=== PATIENT | male | born 1945 | race Caucasian/White ===

== ENCOUNTER → 2017-12-29 | Outpatient (CLI) | payer MEDICARE, BC ==
[~2017-12-29] MED LIST: ASPI81EC PO; CAND32 PO; CHOL10002 PO; COLCHICINE0.6 MG PO; CYCL10 PO; Glucoten Caple1 EACH; HYDACE5325 PO; HYDCHL12.5 PO; LANS30EC PO; MELO7.5 PO; METO50ER PO; NEURONTIN PO; VERA180ER PO; VERA240ER PO
== END ==
LOC: LAB 16:51 → LAB SHORT 16:51
DX: D48.5 Neoplasm of uncertain behavior of skin (principal)
CPT/HCPCS: 88305

== ENCOUNTER → 2018-03-09 | Outpatient (CLI) | payer MEDICARE, BC | LOC: LAB SHORT 09:00 → LAB EV 09:00 | DX: E11.9 Type 2 diabetes mellitus without complications (principal) | CPT/HCPCS: 82043 ==

== ENCOUNTER 2018-12-18 13:43 | Day surgery (SDC) | payer MEDICARE, BC ==
[~2018-12-18] VITALS: Ht 175.3 cm; Wt 108.9 kg
[2018-12-18] MEDS ORDERED: OXYC1TAB11 (14:07)
--- NOTE | 2018-12-18 15:05 | NUR ---
12/18/18 Bobbi Danielson AFTER CONSULTATION WITH DR AMOS, IT WAS AGRRED BETWEEN PT AND DR AMOS TO NOT CONTINUE WITH EPIDURAL INJECTION TODAY.
== END 2018-12-18 14:52 | disposition home or self-care (01) ==
LOC: ORSCSDS 13:43
DX: M54.16 Radiculopathy, lumbar region (principal); Z53.9 Procedure and treatment not carried out, unspecified reason
CPT/HCPCS: J1040

== ENCOUNTER → 2019-02-11 | Outpatient (CLI) | payer MEDICARE, BC ==
[~2019-02-11] MED LIST changes: +OXYC1TAB11
== END | disposition home or self-care (01) ==
LOC: PLD 10:02 → LAB SHORT 10:02
DX: D22.5 Melanocytic nevi of trunk (principal)
CPT/HCPCS: 88305

== ENCOUNTER 2019-02-24 09:37 | Inpatient (IN) | payer MEDICARE, BC ==
[~2019-02-24] VITALS: Ht 175.3 cm; Wt 103.5 kg
[2019-02-24] MEDS ORDERED: CYCL10 PO (10:07)
[2019-02-24] MEDS ORDERED: GAVILAX17 GM PO (10:08)
[2019-02-24] MEDS ORDERED: GABA600 PO (10:08)
[2019-02-24] MEDS ORDERED: OXYC5 PO (10:09)
[2019-02-24] MEDS ORDERED: THERA1 EACH PO (10:09)
[2019-02-24 11:08] LABS: BASOPHILS ABSOLUTE AUTO 0.03 K/mm3 (0.00-0.23); BASOPHILS PERCENT AUTO 0 % (0-2); EOSINOPHILS ABSOLUTE AUTO 0.15 K/mm3 (0.00-0.68); EOSINOPHILS PERCENT AUTO 2 % (0-6); Hematocrit 41.5 % (37.0-53.0); Hemoglobin 13.8 g/dL (13.5-17.5); IMMATURE GRAN ABSOLUTE AUTO 0.03 K/mm3 (0.00-0.10); IMMATURE GRAN PERCENT AUTO 0 % (0-1); LYMPHOCYTES ABSOLUTE AUTO 0.92 K/mm3 (0.84-5.20); LYMPHOCYTES PERCENT AUTO 12 % (21-46); MONOCYTES ABSOLUTE AUTO 0.58 K/mm3 (0.16-1.47); MONOCYTES PERCENT AUTO 8 % (4-13); Mean Corpuscular HGB Conc 33.3 g/dL (31.5-36.5); Mean Corpuscular Volume 93 fL (80-100); Mean Platelet Volume 11.4 fL (9.1-12.4); NEUTROPHILS ABSOLUTE AUTO 5.92 K/mm3 (1.96-9.15); NEUTROPHILS PERCENT AUTO 78 % (41-73); Platelet Count 125 K/mm3 (150-400); RDW Coefficient Variation 12.1 % (11.7-14.2); RDW Standard Deviation 41.2 fL (35.1-46.3); Red Blood Cell Count 4.45 M/mm3 (4.30-5.90); White Blood Cell Count 7.63 K/mm3 (4.00-11.30)
[2019-02-24 11:55] LABS: Alanine Aminotransfer (ALT/SGP 68 U/L (12-78); Albumin, Blood 3.3 g/dL (3.4-5.0); Alk Phos 66 U/L (50-136); Anion Gap 6 mmol/L (6-16); Aspartate Aminotrans (AST/SGOT 41 U/L (12-37); Bilirubin, Total 0.5 mg/dL (0.1-1.0); Blood Urea Nitrogen 20 mg/dL (8-24); Bun/Creatinine Ratio 20.4 (12.0-20.0); CO2, Blood 25 mmol/L (21-32); Calcium, Blood 8.4 mg/dL (8.5-10.1); Chloride, Blood 109 mmol/L (98-108); Creatinine, Blood 0.98 mg/dL (0.60-1.20); Globulin, Blood 3.2 g/dL (2.2-4.0); Glomerular Filtration Rate >60 (60-); Glucose, Blood 150 mg/dL (70-99); Potassium, Blood 3.9 mmol/L (3.5-5.5); Sodium, Blood 140 mmol/L (136-145); Total Protein, Blood 6.5 g/dL (6.4-8.2); Troponin I 0.084 ng/mL (0.000-0.040)
[2019-02-24] MEDS ORDERED: CANDESARTAN-HC1 EAC1 PO (12:37)
--- NOTE | 2019-02-24 16:15 | NUR ---
PT RECENTLY TO IMAGING.
--- NOTE | 2019-02-24 16:38 | NUR ---
ELEVATED TROPONIN RECENTLY RECIEVED, DR FRITZ NOTIFIED OF LABS AND THAT PT IS IN IMAGING FOR STUDY. REPORTS TO CONSULT CARDIOLOGY. DR MACKEY NOTIFED OF CARDIOLOGY CONSULT. DISCUSSED LABS AND THAT PT IS OUT OF ROOM FOR IMAGING STUDY.
--- NOTE | 2019-02-24 18:34 | NUR ---
SEMICONDUCTOR WAFER INSPECTOR REPORTS CLARIFYING WITH HOSPITALIST COVERING FOR DR FRITZ TO GIVE IVF ORDERED.
--- NOTE | 2019-02-24 18:41 | NUR ---
DR MACKEY HERE TO SEE PT.
--- NOTE | 2019-02-25 05:57 | NUR ---
SHIFT SUMMARY PT RESTED INFREQUENTLY T/O NIGHT. AAOX4. PT DENIES CHEST DISCOMFORT/DYSPNEA T/O NIGHT. TELEMETRY REPORTING WONDERING ATRIAL PACEMAKER IN 60s TO 80s T/O NIGHT. PT SBA UP TO RESTROOM, BACK TO BED. ELEVATED BLOOD PRESSURE NOTED THIS SHIFT, CALL TO HOSPITALIST AND ADMINISTERED HYDRALAZINE 10MG IV X1 THIS AM, CONTINUE TO MONITOR. PT SITTING UP IN BED THIS AM, CALL LIGHT IN REACH, DENIES FURTHER NEEDS.
[2019-02-25 06:11] LABS: BASOPHILS ABSOLUTE AUTO 0.04 K/mm3 (0.00-0.23); BASOPHILS PERCENT AUTO 1 % (0-2); EOSINOPHILS ABSOLUTE AUTO 0.29 K/mm3 (0.00-0.68); EOSINOPHILS PERCENT AUTO 3 % (0-6); Hematocrit 42.5 % (37.0-53.0); Hemoglobin 14.3 g/dL (13.5-17.5); IMMATURE GRAN ABSOLUTE AUTO 0.03 K/mm3 (0.00-0.10); IMMATURE GRAN PERCENT AUTO 0 % (0-1); LYMPHOCYTES ABSOLUTE AUTO 1.46 K/mm3 (0.84-5.20); LYMPHOCYTES PERCENT AUTO 17 % (21-46); MONOCYTES ABSOLUTE AUTO 0.82 K/mm3 (0.16-1.47); MONOCYTES PERCENT AUTO 9 % (4-13); Mean Corpuscular HGB 31.6 pg (26.0-34.0); Mean Corpuscular HGB Conc 33.6 g/dL (31.5-36.5); Mean Corpuscular Volume 94 fL (80-100); Mean Platelet Volume 10.8 fL (9.1-12.4); NEUTROPHILS PERCENT AUTO 70 % (41-73); Platelet Count 132 K/mm3 (150-400); RDW Coefficient Variation 12.2 % (11.7-14.2); RDW Standard Deviation 42.7 fL (35.1-46.3); Red Blood Cell Count 4.52 M/mm3 (4.30-5.90); White Blood Cell Count 8.74 K/mm3 (4.00-11.30)
[2019-02-25 06:45] LABS: Alanine Aminotransfer (ALT/SGP 60 U/L (12-78); Albumin, Blood 3.2 g/dL (3.4-5.0); Alk Phos 64 U/L (50-136); Anion Gap 7 mmol/L (6-16); Aspartate Aminotrans (AST/SGOT 37 U/L (12-37); Bilirubin, Total 0.4 mg/dL (0.1-1.0); Blood Urea Nitrogen 17 mg/dL (8-24); Bun/Creatinine Ratio 18.8 (12.0-20.0); CHOL/HDL RATIO 3.8; CO2, Blood 24 mmol/L (21-32); Calcium, Blood 8.6 mg/dL (8.5-10.1); Chloride, Blood 112 mmol/L (98-108); Cholesterol 169 mg/dL (50-200); Globulin, Blood 3.3 g/dL (2.2-4.0); Glomerular Filtration Rate >60 (60-); Glucose, Blood 108 mg/dL (70-99); HDL Cholesterol 45 mg/dL (>39); LDL/HDL RATIO 2.1; Low Density Lipoprotein Chol 96 mg/dL (0-110); Potassium, Blood 3.8 mmol/L (3.5-5.5); Sodium, Blood 143 mmol/L (136-145); Total Protein, Blood 6.5 g/dL (6.4-8.2); Triglycerides 139 mg/dL (30-160); Very Low Density Lipoprot Chol 27 mg/dL (6-32)
--- NOTE | 2019-02-25 07:57 | NUR ---
DR MAKCEY HERE RECENTLY, SHE REPORTS PT WANTING SECOND OPINION AND THAT PT WISHES TO SPEAK TO REGULAR DOCTOR. DR MACKEY REPORTS WILL CALL AND TALK WITH DR FRITZ. REPORTS TO GIVE LOSARTAAN AND IV HYDRALAZINE AT THIS TIME.
--- NOTE | 2019-02-25 08:23 | NUR ---
PT MED ORDERED. REMINDED OF NPO IN 08:30 PER IMAGING YESTERDAY EVENING.
--- NOTE | 2019-02-25 09:44 | NUR ---
DR FRITZ HERE TO SEE PT, FAMILY PRESENT. REPORTS TALKING TO OTHER OFFICE MACHINES WIRER AND THAT THEY WILL COME SEE PT LATER TODAY.
--- NOTE | 2019-02-25 09:54 | NUR ---
DR FRITZ REPORTS WILL CANCEL STRESS TEST.
--- NOTE | 2019-02-25 10:28 | NUR ---
ECHO BEING COMPLETED.
--- NOTE | 2019-02-25 15:16 | NUR ---
Echocardiogram completed.
--- NOTE | 2019-02-25 16:42 | NUR ---
DR FRITZ CALLED PER HIS REQ. DISCUSSED STATUS INCLUDING VS. DISCUSSED PT REFUSING CBG'S, REPORTS MAY D/C. DISCUSSED CBG'S THAT HAVE BEEN DRAWN.
--- NOTE | 2019-02-25 18:38 | NUR ---
DR FRITZ INFORMED OF PT REPORTING NOT SEEING THE BRAKE LININGS COATER YET, REPORTS WILL CONTACT BRAKE LININGS COATER.
--- NOTE | 2019-02-25 19:18 | NUR ---
OPERATIONS SUPPORT MANAGER HERE TO SEE PT.
[2019-02-26 05:00] LABS: BASOPHILS ABSOLUTE AUTO 0.04 K/mm3 (0.00-0.23); BASOPHILS PERCENT AUTO 1 % (0-2); EOSINOPHILS ABSOLUTE AUTO 0.29 K/mm3 (0.00-0.68); EOSINOPHILS PERCENT AUTO 4 % (0-6); Hematocrit 42.7 % (37.0-53.0); Hemoglobin 14.3 g/dL (13.5-17.5); IMMATURE GRAN ABSOLUTE AUTO 0.03 K/mm3 (0.00-0.10); IMMATURE GRAN PERCENT AUTO 0 % (0-1); LYMPHOCYTES ABSOLUTE AUTO 1.62 K/mm3 (0.84-5.20); LYMPHOCYTES PERCENT AUTO 20 % (21-46); MONOCYTES ABSOLUTE AUTO 0.94 K/mm3 (0.16-1.47); MONOCYTES PERCENT AUTO 12 % (4-13); Mean Corpuscular HGB 31.2 pg (26.0-34.0); Mean Corpuscular HGB Conc 33.5 g/dL (31.5-36.5); Mean Corpuscular Volume 93 fL (80-100); Mean Platelet Volume 10.8 fL (9.1-12.4); NEUTROPHILS ABSOLUTE AUTO 5.09 K/mm3 (1.96-9.15); NEUTROPHILS PERCENT AUTO 64 % (41-73); Platelet Count 142 K/mm3 (150-400); RDW Coefficient Variation 12.5 % (11.7-14.2); RDW Standard Deviation 42.5 fL (35.1-46.3); Red Blood Cell Count 4.59 M/mm3 (4.30-5.90); White Blood Cell Count 8.01 K/mm3 (4.00-11.30)
[2019-02-26 05:30] LABS: Anion Gap 6 mmol/L (6-16); Blood Urea Nitrogen 17 mg/dL (8-24); Bun/Creatinine Ratio 16.3 (12.0-20.0); CO2, Blood 26 mmol/L (21-32); Calcium, Blood 8.8 mg/dL (8.5-10.1); Chloride, Blood 111 mmol/L (98-108); Creatinine, Blood 1.04 mg/dL (0.60-1.20); Glomerular Filtration Rate >60 (60-); Glucose, Blood 103 mg/dL (70-99); Potassium, Blood 3.8 mmol/L (3.5-5.5); Sodium, Blood 143 mmol/L (136-145)
--- NOTE | 2019-02-26 06:37 | NUR ---
LYING IN SEMI FOWLERS WITH EYES CLOSED. REPOSITIONS SELF FOR COMFORT. DENIES FURTHER NEEDS AT THIS TIME. SAFETY MEASURES IN PLACE. WILL GIVE HAND OFF TO ONCOMING SHIFT USING SBAR,
--- NOTE | 2019-02-26 15:37 | NUR ---
to [facility] center per wheelchair. patient notified his of procedure
--- NOTE | 2019-02-26 17:51 | NUR ---
PT ARRIVED TO PCU 12 FROM [facility]UC[facility] AFTER HAVING A STENT PLACED. TR BAND IN PLACE SITE IS CLEAR. VS STABLE. AFEBRILE. AT BEDSIDE. CALL LIGHT IN REACH.
--- NOTE | 2019-02-26 18:20 | NUR ---
summary patient denies pain or discomfort. right foot dressing dry and intact, wound vac in place with scant sanguinous drainage. patient has home insulin pump in place and has not required sliding scale coverage. notified by pcu bus driver/monitor that patient had an increase in pvc's post op but that pvc's have now decreased-will pass this information to oncoming shift. patient denies chest pain, sob and does not feel irregular heart beats. spoke with Jose Mace RN regarding need for home wound vac.
--- NOTE | 2019-02-26 18:40 | NUR ---
B/P RUNNING HIGH, DID NOT RECIEVE HIS LOSARTIN THIS AM, THIS WAS GIVEN. CARDIOLOGY WAS IN TO SEE HIM, DOING WELL. CALL LIGHT IN REACH. AT BEDSIDE.
--- NOTE | 2019-02-26 19:30 | NUR ---
ASSUMED CARE PT RESTING COMFORTABLY IN ROOM. PER DAY SHIFT PT ARRIVED TO UNIT SHORTLY BEFORE SHIFT CHANGE FROM [facility]. PT HAD ANGIO TODAY W/ 1 STENT TO RCA. PT HAS R RADIAL SITE APPEARS WNL UPON INSPECTION. RESP EVEN UNLABORED ON RA SATS >92%. DENIES PAIN. PT AFFECT IS SLIGHTLY ANXIOUS AND IRRATATED AT BEHING IN HOSP. PT OFFERED PRN ATIVAN FOR ANXIETY. PT REPORTS WILL CONSIDER. DENIES OTHER NEEDS AT THIS TIME. CALL LIGHT IN REACH.
--- NOTE | 2019-02-26 20:30 | NUR ---
ANGIO SITE BLEEDING PT HAS R RADIAL SITE FROM ANGIO THIS AFTERNOON. PT HAD GOTTEN UP TO RR, REPORTS DID NOT USE R ARM BUT BLEEDING WAS NOTED AFTER USE OF RR. PT BACK TO BED AND SITE INSPECTED. NO PULSATING BLOOD NOTED TO SITE. 2ML OF AIR ADDED TO BALLOON TO STOP OOZING. PT CONT TO HAVE GOOD CAP REFIL TO R HAND. DENEIS ANY PAIN. NO HEMATOMAS NOTED. AFTER DISCUSSING W/ FILTERER, WILL LEAVE TR BAND INFLATED FOR ANOTHER HOUR AND REINSPECT FOR FURTHER BLEEDINGH BEFORE ATTEMPTING TO DEFLATE CUFF.
[2019-02-27 04:06] LABS: BASOPHILS ABSOLUTE AUTO 0.05 K/mm3 (0.00-0.23); BASOPHILS PERCENT AUTO 1 % (0-2); EOSINOPHILS ABSOLUTE AUTO 0.36 K/mm3 (0.00-0.68); EOSINOPHILS PERCENT AUTO 4 % (0-6); Hematocrit 43.2 % (37.0-53.0); Hemoglobin 14.6 g/dL (13.5-17.5); IMMATURE GRAN ABSOLUTE AUTO 0.02 K/mm3 (0.00-0.10); IMMATURE GRAN PERCENT AUTO 0 % (0-1); LYMPHOCYTES ABSOLUTE AUTO 1.41 K/mm3 (0.84-5.20); LYMPHOCYTES PERCENT AUTO 15 % (21-46); MONOCYTES ABSOLUTE AUTO 0.93 K/mm3 (0.16-1.47); MONOCYTES PERCENT AUTO 10 % (4-13); Mean Corpuscular HGB 31.6 pg (26.0-34.0); Mean Corpuscular HGB Conc 33.8 g/dL (31.5-36.5); Mean Corpuscular Volume 94 fL (80-100); Mean Platelet Volume 10.7 fL (9.1-12.4); NEUTROPHILS ABSOLUTE AUTO 6.66 K/mm3 (1.96-9.15); NEUTROPHILS PERCENT AUTO 71 % (41-73); Platelet Count 150 K/mm3 (150-400); RDW Coefficient Variation 12.2 % (11.7-14.2); RDW Standard Deviation 42.2 fL (35.1-46.3); Red Blood Cell Count 4.62 M/mm3 (4.30-5.90); White Blood Cell Count 9.43 K/mm3 (4.00-11.30)
[2019-02-27 04:27] LABS: Alanine Aminotransfer (ALT/SGP 65 U/L (12-78); Albumin, Blood 3.3 g/dL (3.4-5.0); Albumin/Globulin Ratio 1.1 (0.8-1.8); Alk Phos 67 U/L (50-136); Anion Gap 6 mmol/L (6-16); Aspartate Aminotrans (AST/SGOT 41 U/L (12-37); Bilirubin, Total 0.6 mg/dL (0.1-1.0); Blood Urea Nitrogen 17 mg/dL (8-24); Bun/Creatinine Ratio 18.6 (12.0-20.0); CO2, Blood 26 mmol/L (21-32); Calcium, Blood 8.7 mg/dL (8.5-10.1); Chloride, Blood 109 mmol/L (98-108); Creatinine, Blood 0.92 mg/dL (0.60-1.20); Globulin, Blood 3.1 g/dL (2.2-4.0); Glomerular Filtration Rate >60 (60-); Glucose, Blood 103 mg/dL (70-99); Magnesium, Blood 2.2 mg/dL (1.6-2.4); Phosphorus, Blood 3.5 mg/dL (2.5-4.9); Potassium, Blood 3.8 mmol/L (3.5-5.5); Sodium, Blood 141 mmol/L (136-145); Total Protein, Blood 6.4 g/dL (6.4-8.2)
--- NOTE | 2019-02-27 05:28 | NUR ---
SHIFT SUMMARY PT SLEEPING IN ROOM COMFORTABLY. NO ACUTE CHANGES IN STATUS OVERNIGHT. TR BAND REMAINS IN PLACE BUT IS FULLY DEFLATED. WILL REMOVE AND PLACE TEGADERM WITH AM MEDICATIONS. NO FURTHER BLEEDING TO SITE NOTED. PT WAS MEDICATED DURING NIGHT FOR ANXIETY TO AID IN RELAXING FOR SLEEP. RESP EVEN UNLBAORED ON RA W/ SATS >92%. DENIES PAIN. DENIES OTHER NEEDS. CALL LIGHT IN REACH. PT CALLS APPROPRIATELY.
[2019-02-27] MEDS ORDERED: AMLO5 PO (11:29)
[2019-02-27] MEDS ORDERED: ATOR40TA PO (11:33)
[2019-02-27] MEDS ORDERED: FOLI1 PO (11:36)
[2019-02-27] MEDS ORDERED: CLOP75 PO (11:36)
[2019-02-27] MEDS ORDERED: B-1100 MG PO (11:37)
--- NOTE | 2019-02-27 14:03 | NUR ---
DC SUMMARY ASSUMED CARE OF PT @0700. PT SITTING UP IN BED RESTING. PT WAKES TO VOICE, IMMEDIATELY STARTS TO CONVERSE WITH NURSE. PT HAS ARMBOARD IN PLACE, RW. TEGADERM COVERING ANGIO SITE. DRIED BLOOD FROM PM SHIFT. NO NEW BLOOD NOTICED. PULSES SRONG RADIALLY, CAP REFILL INSTANT. WRIST/HAND WARM. PT DENIES PAIN. PT MEDICATED PER EMAR. DISCHARGE ORDERS PLACED BY EULOGIO ONCE DIASTOLIC BP >90 DUE TO HIGH DISATOLIC THIS AM. PT BP TAKEN AFTER AM MEDS, DIASTOLIC >80. PT EDUCATED WITH SPOUSE AT BEDSIDE REGARDING RW PRECAUTIONS, SIGNS OF BLEEDING, ETC. ALL BELONGINGS HOME WITH PATIENT AND SPOUSE. PATIENT AND SPOUSE STATED UNDERSTANDING THE DC CONTENT AND STATED THEY WOULD CALL IF THEY HAD ANY QUESTIONS.
== END 2019-02-27 13:08 | disposition home or self-care (01) | DRG 247 ==
LOC: ER 09:37 → MEDS 09:38 → SURS 09:38 → PCU 09:38 → SURS 15:39 → PCU 02-26 17:15
PROVIDERS: Emergency Medicine; Hospitalist; ADMIT Family Medicine
PROC: 027034Z Dilation of Coronary Artery, One Artery with Drug-eluting Intraluminal Device, Percutaneous Approach (ICD-10-PCS; principal; 2019-02-26)
PROC: B2011ZZ Plain Radiography of Multiple Coronary Arteries using Low Osmolar Contrast (ICD-10-PCS; 2019-02-26)
PROC: 4A023N7 Measurement of Cardiac Sampling and Pressure, Left Heart, Percutaneous Approach (ICD-10-PCS; 2019-02-26)
DX: I21.4 Non-ST elevation (NSTEMI) myocardial infarction (principal); I25.110 Atherosclerotic heart disease of native coronary artery with unstable angina pectoris; M19.90 Unspecified osteoarthritis, unspecified site; K21.9 Gastro-esophageal reflux disease without esophagitis; N40.0 Benign prostatic hyperplasia without lower urinary tract symptoms; K70.0 Alcoholic fatty liver; I65.29 Occlusion and stenosis of unspecified carotid artery; E78.00 Pure hypercholesterolemia, unspecified; Z87.891 Personal history of nicotine dependence; Z79.82 Long term (current) use of aspirin; E11.22 Type 2 diabetes mellitus with diabetic chronic kidney disease; N18.2 Chronic kidney disease, stage 2 (mild); F10.10 Alcohol abuse, uncomplicated; E11.42 Type 2 diabetes mellitus with diabetic polyneuropathy; E66.9 Obesity, unspecified; Z68.34 Body mass index [BMI] 34.0-34.9, adult; E78.5 Hyperlipidemia, unspecified; D69.6 Thrombocytopenia, unspecified; Z66 Do not resuscitate; I12.9 Hypertensive chronic kidney disease with stage 1 through stage 4 chronic kidney disease, or unspecified chronic kidney disease; Z79.02 Long term (current) use of antithrombotics/antiplatelets
CPT/HCPCS: 36415; 71046; 80048; 80053; 80061; 82947; 83036; 83735; 83880; 84100; 84145; 84484; 85025; 85347; 93005; 93010; 93306; 93458; 96361; 96365; 96375; 99152; 99153; 99285-25; C1725; C1769; C1874; C1887; C1894; C9600; J0360; J0696; J1644; J1650; J2060; J2250; J2405; J3010; J7030; Q9967

== ENCOUNTER → 2021-03-05 | Outpatient (CLI) | payer MEDICARE, BC ==
[~2021-03-05] MED LIST changes: +AMLO5 PO; +ATOR40TA PO; +B-1100 MG PO; +CANDESARTAN-HC1 EAC1 PO; +CLOP75 PO; +FOLI1 PO; +GABA600 PO; +GAVILAX17 GM PO; +OXYC5 PO; +THERA1 EACH PO
== END ==
LOC: LAB SHORT 10:54
DX: D22.5 Melanocytic nevi of trunk (principal)
CPT/HCPCS: 88305

== ENCOUNTER 2024-03-17 09:56 | Inpatient (IN) | payer MEDICARE, BC ==
[~2024-03-17] VITALS: Ht 175.3 cm; Wt 106.3 kg
[2024-03-17] VITALS (8 sets, daily range): BP systolic 141–165; BP diastolic 70–81
[2024-03-17 10:57] LABS: BASOPHILS ABSOLUTE AUTO 0.04 K/mm3 (0.00-0.23); BASOPHILS PERCENT AUTO 0 % (0-2); EOSINOPHILS ABSOLUTE AUTO 0.16 K/mm3 (0.00-0.68); EOSINOPHILS PERCENT AUTO 2 % (0-6); Hematocrit 43.7 % (37.0-53.0); Hemoglobin 14.8 g/dL (13.5-17.5); IMMATURE GRAN ABSOLUTE AUTO 0.03 K/mm3 (0.00-0.10); IMMATURE GRAN PERCENT AUTO 0 % (0-1); LYMPHOCYTES ABSOLUTE AUTO 1.65 K/mm3 (0.84-5.20); LYMPHOCYTES PERCENT AUTO 17 % (21-46); MONOCYTES ABSOLUTE AUTO 0.79 K/mm3 (0.16-1.47); MONOCYTES PERCENT AUTO 8 % (4-13); Mean Corpuscular HGB 30.1 pg (26.0-34.0); Mean Corpuscular HGB Conc 33.9 g/dL (31.5-36.5); Mean Corpuscular Volume 89 fL (80-100); NEUTROPHILS ABSOLUTE AUTO 6.93 K/mm3 (1.96-9.15); NEUTROPHILS PERCENT AUTO 72 % (41-73); Platelet Count 161 K/mm3 (150-400); RDW Coefficient Variation 12.8 % (11.7-14.2); RDW Standard Deviation 41.8 fL (35.1-46.3); Red Blood Cell Count 4.92 M/mm3 (4.30-5.90)
[2024-03-17 11:22] LABS: Albumin, Blood 3.6 g/dL (3.4-5.0); Bilirubin, Total 0.5 mg/dL (0.1-1.0); Bun/Creatinine Ratio 24.3 (12.0-20.0); Calcium, Blood 9.3 mg/dL (8.5-10.1); Creatinine, Blood 1.03 mg/dL (0.60-1.20); Globulin, Blood 3.5 g/dL (2.2-4.0); Potassium, Blood 3.8 mmol/L (3.5-5.5); Total Protein, Blood 7.1 g/dL (6.4-8.2)
[2024-03-17] MEDS ORDERED: Aspirin 81 MG Chew PO ONE (11:55)
[2024-03-17 12:24] LABS: Anti-Xa UFH, PHA Monitoring <0.10 IU/mL; International Normalized Ratio 0.96; Prothrombin Time Results 10.3 Sec (9.7-11.5)
[2024-03-17] MEDS ORDERED: Heparin Sodium,Porcine/0.5 NS 500 ML IV SCH (12:35)
[2024-03-17] MEDS ORDERED: Heparin Sodium 5000 Units/ML 1ML MDV IV ONE (12:35)
[2024-03-17] MEDS ORDERED: NS 250 ML IV ONE (13:25)
[2024-03-17] MEDS ORDERED: NS 1,000 ML IV ONE ×2 (13:25→15:38)
[2024-03-17] MEDS ORDERED: Heparin Sodium 1000 Units/ML 10ML MDV ONE (13:25)
[2024-03-17] MEDS ORDERED: Nitroglycerin 2 MG/20 ML BTL ONE (13:25)
[2024-03-17] MEDS ORDERED: NiCARdipine HCL 1,000 MCG/5 ML SYR ONE (13:25)
[2024-03-17] MEDS ORDERED: FentaNYL Citrate 50 MCG/ML 2 ML Injection ONE (15:38)
[2024-03-17] MEDS ORDERED: Midazolam HCl 1MG / ML 2ML Vial ONE (15:38)
[2024-03-17] MEDS ORDERED: Acetaminophen 325 MG TABLET PO PRN (16:50)
[2024-03-17] MEDS ORDERED: NS 1,000 ML IV SCH (17:00)
--- NOTE | 2024-03-17 18:28 | NUR ---
PCU ADMIT / END OF SHIFT PT BROUGHT TO PCU-[facility] BY BED FROM [facility] @ APPROX 1645. PT A&O X4. VSS. SPO2 > 92% ON RA. MONITOR SHOWING SR, HR 60s-70s. PT DENYING CP/DISCOMFORT, STATING LAST EPISODE OF CP WAS "JUST BEFORE THEY STARTED THE PROCEDURE." PT W/ R RADIAL ACCESS SITE. TR BAND & ARM BOARD IN PLACE. SITE WNL. ORDERS TO RESUME HEPARIN GTT @ 1930. PT PENDING COBRA TRANSFER.
[2024-03-17] MEDS ORDERED: Atorvastatin 40 MG Tab PO SCH (21:00)
[2024-03-17] MEDS ORDERED: Metoprolol Succinate 50 MG TABCR PO SCH (21:00)
[2024-03-17] MEDS ORDERED: Gabapentin 300 MG Cap PO SCH (21:00)
[2024-03-18] VITALS (8 sets, daily range): BP systolic 101–141; BP diastolic 59–76
[2024-03-18 01:48] LABS: BASOPHILS ABSOLUTE AUTO 0.04 K/mm3 (0.00-0.23); BASOPHILS PERCENT AUTO 0 % (0-2); EOSINOPHILS ABSOLUTE AUTO 0.25 K/mm3 (0.00-0.68); EOSINOPHILS PERCENT AUTO 3 % (0-6); Hematocrit 40.3 % (37.0-53.0); Hemoglobin 13.7 g/dL (13.5-17.5); IMMATURE GRAN ABSOLUTE AUTO 0.02 K/mm3 (0.00-0.10); IMMATURE GRAN PERCENT AUTO 0 % (0-1); LYMPHOCYTES ABSOLUTE AUTO 1.98 K/mm3 (0.84-5.20); LYMPHOCYTES PERCENT AUTO 21 % (21-46); MONOCYTES ABSOLUTE AUTO 0.91 K/mm3 (0.16-1.47); MONOCYTES PERCENT AUTO 10 % (4-13); Mean Corpuscular HGB 30.4 pg (26.0-34.0); Mean Corpuscular Volume 89 fL (80-100); NEUTROPHILS ABSOLUTE AUTO 6.38 K/mm3 (1.96-9.15); NEUTROPHILS PERCENT AUTO 67 % (41-73); Platelet Count 142 K/mm3 (150-400); RDW Coefficient Variation 12.7 % (11.7-14.2); RDW Standard Deviation 41.7 fL (35.1-46.3); Red Blood Cell Count 4.51 M/mm3 (4.30-5.90); White Blood Cell Count 9.58 K/mm3 (4.00-11.30)
[2024-03-18 02:05] LABS: Anion Gap 10 mmol/L (3-11); Blood Urea Nitrogen 23 mg/dL (8-24); Bun/Creatinine Ratio 23.6 (12.0-20.0); CHOL/HDL RATIO 2.2; CO2, Blood 27 mmol/L (21-32); Calcium, Blood 9.1 mg/dL (8.5-10.1); Chloride, Blood 108 mmol/L (98-108); Cholesterol 100 mg/dL (50-200); Creatinine, Blood 0.98 mg/dL (0.60-1.20); Glomerular Filtration Rate 78 (60-); Glucose, Blood 125 mg/dL (70-99); HDL Cholesterol 45 mg/dL (>39); LDL/HDL RATIO 0.6; Low Density Lipoprotein Chol 29 mg/dL (0-110); Potassium, Blood 3.7 mmol/L (3.5-5.5); Sodium, Blood 141 mmol/L (136-145); Triglycerides 130 mg/dL (30-160); Very Low Density Lipoprot Chol 26 mg/dL (6-32)
[2024-03-18] MEDS ORDERED: Clarify Drug Order XX ONE (02:40)
--- NOTE | 2024-03-18 04:57 | NUR ---
SHIFT SUMMARY ASSUMED CARE OF PT AT 1900. PT ALERT & ORIENTED x4, COOPERATIVE WITH CARES, CALL LIGHT APPROPRIATE. NSR ON TELE. HEMODYNAMICALLY STABLE. TR BAND RECOVERED @ 2152. SITE IS WITHOUT COMPLICATION, PATIENT TOLERATED WELL. HEPARIN GTT INFUSING PER ORDERS, WITHIN THERAPEUTIC RANGE. PT DENIES CHEST PAIN, PALPITATIONS OVERNIGHT. NO ACUTE EVENTS.
[2024-03-18] MEDS ORDERED: Lansoprazole 15 MG TAB.RAP.DR PO SCH (06:00)
[2024-03-18] MEDS ORDERED: Irbesartan 150 MG Tab PO SCH (09:00)
[2024-03-18] MEDS ORDERED: Aspirin 81 MG TabEC PO SCH (09:00)
[2024-03-18] MEDS ORDERED: Dose Adjust by Pharmacy XX STA (17:22)
--- NOTE | 2024-03-18 18:05 | NUR ---
COBRA TRANSFER SUMMARY: PT A&OX4 AND SATTING >90% ON ROOM AIR. ON TELE SHOWING NSR WITH RATE 60'S. SBA W/ WALKER TO USE THE BATHROOM. PT TRANSFERRED VIA AMBULANCE WITH [facility] AND GIVEN REPORT TO THE RECEIVING NURSE. NOTIFIED OF THE HEPRIN PUT ON STANDBY DUE TO HIGH LEVELS OF HEPRIN ANTI-X. HEPRING READING LEVEL WAS LAST DRAN AT 8AM TODAY WITH A .88 LEVEL. PHARMACY CALLED AND CHARGE NURSE NOTIFIED THAT HEPRIN WAS PUT ON STANDBY AND TO BE RESUMED AT 18:20 WITH A RATE CHANGE TO 13 U/KG. TRANSPORT TEAM WAS ALSO NOTIFIED ABOUT THE STOP OF HEPRIN AND WHEN TO RESTART IT. FRIEND JONAS TOOK HIS PERSONAL BELONGINGS.
== END 2024-03-18 18:02 | disposition short-term general hospital (02) | DRG 282 ==
LOC: ER 09:56 → PCU 14:02
PROVIDERS: Internal Medicine Cardiovascular Disease; Pharmacist; Physician Assistant; ADMIT Family Medicine
PROC: B2111ZZ Fluoroscopy of Multiple Coronary Arteries using Low Osmolar Contrast (ICD-10-PCS; principal; 2024-03-17)
DX: I21.4 Non-ST elevation (NSTEMI) myocardial infarction (principal); E78.5 Hyperlipidemia, unspecified; M19.90 Unspecified osteoarthritis, unspecified site; K21.9 Gastro-esophageal reflux disease without esophagitis; E11.22 Type 2 diabetes mellitus with diabetic chronic kidney disease; Z66 Do not resuscitate; I12.9 Hypertensive chronic kidney disease with stage 1 through stage 4 chronic kidney disease, or unspecified chronic kidney disease; N18.9 Chronic kidney disease, unspecified; I25.10 Atherosclerotic heart disease of native coronary artery without angina pectoris; Z95.5 Presence of coronary angioplasty implant and graft; Z79.899 Other long term (current) drug therapy; Z79.82 Long term (current) use of aspirin; Z90.89 Acquired absence of other organs; Z98.890 Other specified postprocedural states; Z87.891 Personal history of nicotine dependence
CPT/HCPCS: 36415; 71046; 76937; 80048; 80053; 80061; 83036; 83690; 84484; 85025; 85520; 85610; 85730; 93005; 93010; 93306; 93454; 93880; 96365-59; 96376-59; 99152; 99153; 99285-25; A9270; C1769; C1894; J1644; J2250; J3010; J7030; J7050; Q9967